=== PATIENT | female | born 1970 | race Caucasian/White ===

== ENCOUNTER 2022-12-21 13:33 | Emergency (ER) | payer MEDICAID, SELFPAY ==
[2022-12-21 13:37] VITALS: BP 118/85; PULSE 102; RESP 18; TEMP 36.8; O2SAT 93; BMI 32.2
--- NOTE | 2022-12-21 13:39 | XRR_ITS ---
PROCEDURE INFORMATION: Exam: XR Chest Exam date and time: 12/21/2022 1:42 PM Age: 52 years old Clinical indication: Pain; Angina pectoris; Additional info: Cp.No history of trauma or recent surgery is provided. TECHNIQUE: Imaging protocol: Radiologic exam of the chest. 1image(s) are provided. Views: 1 view. COMPARISON: No relevant prior studies available. FINDINGS: Lungs: There is minimal subsegmental atelectasis versus post inflammatory scarring demonstrated. This is left basilar predominant. No lobar consolidation is appreciated. Pleural spaces: No pneumothorax or significant pleural effusion is appreciated. Heart/Mediastinum: The cardiomediastinal silhouette is within normal. No cardiac decompensation is appreciated. Diaphragm: The hemidiaphragms are symmetric. Bones/joints: Osseous alignment is maintained. No displaced fracture or dislocation is appreciated. Soft tissues: No radiopaque foreign body or subcutaneous emphysema is appreciated. XR/XR chest 1V portable [id number] IMPRESSION: There is some bandlike subsegmental atelectasis versus early peribronchial inflammation of the left lung base. No lobar type consolidation or cardiac decompensation is appreciated.
--- NOTE | 2022-12-21 13:39 | ECG_ITS ---
[facility] Test Date: 2022-12-21 Pat Name: Lashaun Adhikari Department: Room: Gender: Female [employer]p [employer]: : 1970 Requested By: Corinna Chandra Order Number: [id number] Jevon MD: Harley Santoyo M.D. Measurements Intervals [place] Rate: 99 P: 45 [place]: 140 QRS: 52 QRSD: 77 T: 43 QT: 335 QTc: 431 Interpretive Statements SINUS RHYTHM NONSPECIFIC T-WAVE ABNORMALITY No previous ECG available for comparison Electronically Signed On 12-21-2022 15:46:54 CDT by Harley Santoyo M.D. [id number]
--- NOTE | 2022-12-21 13:44 | W.ED.CHESTPA ---
HPI - Chest Pain General: Chief Complaint: Chest Pain Stated Complaint: Chest pain Time Seen by Provider: 12/21/22 13:37 Source: patient and EMS Mode of arrival: EMS Limitations: no limitations History of Present Illness: 52-year-old female states that she felt like she could not breathe today. She started feeling extremely anxious like she cannot get a breath then she has had some cough congestion over the last 2 days. She had some mild chest pain patient was given Ativan in route her symptoms have resolved. She denies any fevers denies any vomiting. Associated symptoms: Reports dyspnea; Deny abdominal pain, fever(s), nausea or vomiting Review of Systems Const: Denies: fever(s) or chills Eyes: Denies: eye discomfort ENMT: Denies: throat pain or dental pain Card: Reports: chest pain Resp: Reports: dyspnea and non-productive cough GI: Denies: abdominal pain, nausea, vomiting or diarrhea Musc: Denies: neck pain or back pain Skin/Breast: Denies: rash Neuro: Denies: headache(s) Physical Exam Const: COMMON NORMALS: no acute distress, patient oriented x3 and healthy appearing HENMT: COMMON NORMALS: normocephalic and atraumatic HEAD & SCALP: normocephalic and atraumatic Eye: COMMON NORMALS: Equal, round and reactive pupils present and EOMs intact bilaterally PUPIL: Yes Equal, round and reactive pupils present Neck/C-Spine: COMMON NORMALS: full ROM and supple Chest: COMMONS NORMALS: normal inspection of the chest and normal palpation of entire chest wall Resp: COMMON NORMALS: normal respiratory effort, No retractions, No use of accessory muscles and clear to auscultation bilaterally AUSCULTATION: clear to auscultation bilaterally Cardio: COMMON NORMALS: regular rate, regular rhythm and No murmurs present (Cardio) RATE: regular rate RHYTHM: regular rhythm GI: COMMON NORMALS: Normal to inspection, nondistended, normoactive bowel sounds present, Soft to palpation, non-tender and no masses PALPATION: Yes Soft to palpation Extremity: COMMON NORMALS: normal to inspection and full ROM Neuro: COMMON NORMALS: patient oriented x3, moves all extremities and no focal motor deficits Psych: COMMON NORMALS: mental status grossly normal, Normal thought process present and cooperative THOUGHT PROCESS: Normal thought process present Skin: COMMON NORMALS: no rashes or lesions noted and no wounds GENERAL SKIN EXAM: no rashes or lesions noted Course Vital Signs: Vital signs: Vital Signs Temperature 98.3 F 12/21/22 13:37 Pulse Rate 103 H 12/21/22 13:45 Respiratory Rate 20 H 12/21/22 13:45 Blood Pressure 128/77 12/21/22 13:45 Pulse Oximetry 95 12/21/22 13:45 Oxygen Delivery Me thod Room Air 12/21/22 13:45 Oxygen Flow Rate 2 12/21/22 13:37 MDM - Chest Pain Medical Decision Making Patient presents for shortness of breath she also having some slight chest pain she had some cough and congestion x-ray shows a possible left lower lobe pneumonia she is well-appearing here nontoxic she is not hypoxic we will start her on Keflex troponins here are normal D-dimer is negative as well she is stable for discharge she is to follow-up with PCP and return if worsening Medical Records I reviewed the patient's medical records. Lab Data I reviewed the patient's lab results. 12/21/22 13:43 12/21/22 13:43 Radiology Impressions Chest X-Ray 12/21/22 13:39 IMPRESSION: There is some bandlike subsegmental atelectasis versus early peribronchial inflammation of the left lung base. No lobar type consolidation or cardiac decompensation is appreciated. Laboratory Results WBC 8.58 10^3/uL (3.29-11.43) 12/21/22 13:43 RBC 4.96 10^6/uL (3.85-5.65) 12/21/22 13:43 Hgb 15.50 g/dL (11.27-16.99) 12/21/22 13:43 Hct 42.2 % (36-47) 12/21/22 13:43 MCV 85.1 fl (85-98) 12/21/22 13:43 MCH 31.3 pg (27-33) 12/21/22 13:43 MCHC 36.7 g/dL (30-55) 12/21/22 13:43 RDW 11.4 % (12.1-15.1) L 12/21/22 13:43 Plt Count 291 10^3/cmm (157-399) 12/21/22 13:43 MPV 10.3 fL (7.4-10.4) 12/21/22 13:43 Neut % (Auto) 51.9 % 12/21/22 13:43 Lymph % (Auto) 37.9 % 12/21/22 13:43 [place] % (Auto) 6.8 % 12/21/22 13:43 Eos % (Auto) 2.7 % 12/21/22 13:43 Baso % (Auto) 0.5 % 12/21/22 13:43 Neut # (Auto) 4.46 10^3/uL (1.8-7.7) 12/21/22 13:43 Lymph # (Auto) 3.3 10^3/uL (0.8-4.8) 12/21/22 13:43 [place] # (Auto) 0.6 10^3/uL (0.2-0.9) 12/21/22 13:43 Eos # (Auto) 0.2 10^3/uL (0.0-0.8) 12/21/22 13:43 Baso # (Auto) 0.0 10^3/uL (0.0-0.1) 12/21/22 13:43 Nucleated RBC % (auto) 0 % 12/21/22 13:43 Nucleated RBCs # 0.0 /100WBC 12/21/22 13:43 Sodium 140 mmol/L (136-145) 12/21/22 13:43 Potassium 4.3 mmol/L (3.5-5.1) 12/21/22 13:43 Chloride 104 mmol/L (98-107) 12/21/22 13:43 Carbon Dioxide 20 mmol/L (22-29) L 12/21/22 13:43 Anion Gap 20.3 (5-19) H 12/21/22 13:43 BUN 10 mg/dL (6-20) 12/21/22 13:43 Creatinine 0.5 mg/dL (0.5-0.9) 12/21/22 13:43 GFR Calculation 129.1 mL/min (90-130) 12/21/22 13:43 Glucose 258 mg/dL (65-115) H 12/21/22 13:43 Calculated Osmolality 298 mOsm/kg (285-295) H 12/21/22 13:43 Calcium 9.8 mg/dL (8.5-10.5) 12/21/22 13:43 Total Bilirubin 0.4 mg/dL (0.15-1.2) 12/21/22 13:43 AST 14 U/L (0-32) 12/21/22 13:43 ALT 25 U/L (0-33) 12/21/22 13:43 Alkaline Phosphatase 81 U/L (35-105) 12/21/22 13:43 Troponin T Baseline 7 ng/L (0-10) 12/21/22 13:43 Troponin T 120 Minute 6.25 ng/L (0-10) 12/21/22 15:50 Delta Troponin T -0.75 ABS# (0-10) L 12/21/22 15:50 Total Protein 6.8 g/dL (6.6-8.7) 12/21/22 13:43 Albumin 4.9 g/dL (3.5-5.2) 12/21/22 13:43 Globulin 1.9 g/dL (1.3-4.6) 12/21/22 13:43 Lipase 54 U/L (13-60) 12/21/22 13:50 SARS-CoV-2 Ag (Rapid) negative (Negative) 12/21/22 14:05 EKG Data EKG 1: I personally reviewed and interpreted this EKG as follows: EKG interpretation date: 12/21/22 EKG interpretation time: 13:39 Interpretation: nsr hr [address] or t wave abnormalities qrs 77 qtc 391 Discharge Plan Discharge Patient Disposition: Home Clinical Impression: Chest pain, Pneumonia Condition: Stable Prescriptions: New cephalexin 500 mg capsule 500 mg PO TID 7 Days Qty: 21 0RF No Action Lantus Solostar U-100 Insulin 100 unit/mL (3 mL) Insulin Pen 20 unit SUBCUT QAM simvastatin 20 mg Tablet 20 mg PO QAM lisinopril 10 mg Tablet 10 mg PO QAM Discharge Orders: Discharge ED (Routine); Ordered 12/21/22 Ordered By: Corinna Chandra Discharge Diet: Advance as tolerated Discharge Activity: Resume usual activity Patient Instructions: Pneumonia (ED) Coding Level of Care Code ED [employer] for [place]
[2022-12-21 13:45] VITALS: BP 128/77; PULSE 103; RESP 20; O2SAT 95
[2022-12-21 13:52] LABS: Basophils % 0.5 %; Eosinophils # 0.2 10^3/uL (0.0-0.8); Eosinophils % 2.7 %; Hematocrit 42.2 % (36-47); Lymphocytes # 3.3 10^3/uL (0.8-4.8); Lymphocytes % 37.9 %; Mean Corpuscular HGB Conc 36.7 g/dL (30-55); Mean Corpuscular Hemoglobin 31.3 pg (27-33); Mean Corpuscular Volume 85.1 fl (85-98); Mean Platelet Volume 10.3 fL (7.4-10.4); Monocytes # 0.6 10^3/uL (0.2-0.9); Monocytes % 6.8 %; Neutrophils # 4.46 10^3/uL (1.8-7.7); Neutrophils % 51.9 %; Nucleated Red Blood Cells % 0 %; Platelet Count 291 10^3/cmm (157-399); Red Blood Count 4.96 10^6/uL (3.85-5.65); Red Cell Distribution Width 11.4 % (12.1-15.1); White Blood Count 8.58 10^3/uL (3.29-11.43)
[2022-12-21 14:20] LABS: Alanine Aminotransferase 25 U/L (0-33); Albumin Level 4.9 g/dL (3.5-5.2); Alkaline Phosphatase 81 U/L (35-105); Anion Gap 20.3 (5-19); Aspartate Amino Transferase 14 U/L (0-32); Blood Urea Nitrogen 10 mg/dL (6-20); Calcium 9.8 mg/dL (8.5-10.5); Carbon Dioxide 20 mmol/L (22-29); Chloride 104 mmol/L (98-107); Globulin 1.9 g/dL (1.3-4.6); Glomerular Filtration Rate 129.1 mL/min (90-130); Glucose 258 mg/dL (65-115); Osmolality Calculated 298 mOsm/kg (285-295); Potassium 4.3 mmol/L (3.5-5.1); Sodium 140 mmol/L (136-145); Total Bilirubin 0.4 mg/dL (0.15-1.2); Total Protein 6.8 g/dL (6.6-8.7); Troponin(5th) Baseline 7 ng/L (0-10)
[2022-12-21 14:21] LABS: Lipase 54 U/L (13-60)
[2022-12-21 14:33] LABS: SARS Covid-2 Antigen negative (Negative)
--- NOTE | 2022-12-21 15:42 | ECG_ITS ---
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 Measurements Intervals [place] Rate: 80 P: 31 TN: 151 QRS: 42 QRSD: 85 T: 41 QT: 344 QTc: 397 Interpretive Statements SINUS RHYTHM Compared to ECG 12/21/2022 13:39:24 T-wave abnormality no longer present Electronically Signed On 12-21-2022 15:48:09 CDT by Harley Santoyo M.D. [id number]
[2022-12-21 16:30] LABS: Troponin 5 2HR 6.25 ng/L (0-10)
[2022-12-21 16:31] LABS: Troponin 5 2HR Delta -0.75 ABS# (0-10)
== END 2022-12-21 17:14 | disposition home or self-care (01) ==
PROVIDERS: Emergency Provider Emergency Medicine
DX: R07.9 Chest pain, unspecified (principal); J18.9 Pneumonia, unspecified organism; Z79.4 Long term (current) use of insulin; Z20.822 Contact with and (suspected) exposure to COVID-19
CPT/HCPCS: 36415; 71045; 80053; 83690; 84484; 85025; 87426; 93005; 99285